=== PATIENT | female | born 1960 | race Caucasian/White ===

== ENCOUNTER 2023-01-02 15:08 | Outpatient (CLI) | payer BC | END 2023-01-02 15:09 | disposition home or self-care (01) | LOC: CSHCT 15:08 | PROVIDERS: ATTEND Internal Medicine Hematology & Oncology | DX: R91.1 Solitary pulmonary nodule (principal); C32.9 Malignant neoplasm of larynx, unspecified; F17.210 Nicotine dependence, cigarettes, uncomplicated; A15.0 Tuberculosis of lung | CPT/HCPCS: 71260; 82565 ==

== ENCOUNTER 2023-07-23 21:30 | Inpatient (IN) | payer BC, SELFPAY ==
[2023-07-23 22:32] LABS: #Monocytes 0.8 10x3/uL (0.0-1.1); #Neutrophils 7.2 10x3/uL (1.5-8.4); %Basophils 0.2 % (0.0-2.0); %Eosinophils 0.4 % (0.0-6.0); %Lymphocytes 9.6 % (18.0-47.0); %Monocytes 8.4 % (0.0-10.0); %Neutrophils 80.8 % (40.0-75.0); Hematocrit 37.3 % (34.9-44.5); Hemoglobin 12.2 g/dL (12.0-15.5); Mean Corpuscular HGB CONC 32.7 g/dL (32.0-36.0); Mean Corpuscular Hemoglobin 28.5 pg (27.0-33.0); Mean Corpuscular Volume 87.1 fl (81.6-98.3); Mean Platelet Volume 10.7 fl (7.4-10.4); Platelet Count 141 10x3/uL (150-450); RBC Distribution Width 15.5 % (11.5-14.5); Red Blood Cell (RBC) Count 4.28 10x6/uL (3.90-5.03)
[2023-07-23 22:51] LABS: ALT (SGPT) 34 U/L (8-55); AST (SGOT) 35 U/L (5-34); Albumin 3.1 g/dL (3.4-4.8); Alkaline Phosphatase 166 U/L (40-110); Anion Gap 18 mmol/L (10-20); BUN (Urea Nitrogen) 62 mg/dL (9.8-20.1); Bilirubin, Total 0.5 mg/dL (0.2-1.2); Calc. Creatinine Clearance 0 mL/min (70-130); Calcium 8.8 mg/dL (7.8-10.44); Carbon Dioxide 21 mmol/L (23-31); Chloride 95 mmol/L (98-107); Estimated GFR 42; Globulin 2.5 g/dL (2.4-3.5); Glucose 119 mg/dL (80-115); Potassium 5.5 mmol/L (3.5-5.1); Protein, Total 5.6 g/dL (5.8-8.1); Sodium 128 mmol/L (136-145); Troponin I Less than 0.010 ng/mL (< 0.028)
[2023-07-23 23:00] LABS: Bilirubin Neg (Negative); Blood, Urine 250 (Negative); Clarity Cloudy (Clear); Glucose, Urine (Dipstick) Normal (Negative); Ketone, Urine Negative (Negative); Leukocyte 500 (Negative); Nitrite Negative (Negative); Protein, Urine (Dipstick) 100 mg/dl (Neg-Trace); Specific Gravity, Urine 1.015 (1.005-1.030)
[2023-07-23 23:21] LABS: Bacteria/HPF 1+ HPF (None Seen); CAUTI Indications for Culture Dysuria,urgency,freq; Mucous/LPF Rare LPF (<2+); WBC/HPF Greater Than 50 HPF (0-3)
[2023-07-23 23:22] LABS: Urine Culture Reflex Yes Yes
[2023-07-23] MEDS ORDERED: cefTRIAXone (ROCEPHIN) 1 GM VIAL ONE (23:45)
[2023-07-24] MEDS ORDERED: Acetaminophen 325 MG TAB PO PRN (01:24)
[2023-07-24] MEDS ORDERED: Ondansetron ODT 4 MG TAB PO PRN (01:24)
[2023-07-24] MEDS ORDERED: Acetaminophen 650 MG Suppository PR PRN (01:24)
[2023-07-24] MEDS ORDERED: Ondansetron PF 4 MG/2 ML Vial IVP PRN (01:24)
[2023-07-24] MEDS ORDERED: Ipratropium/Albuterol 3 ML NEB NEB PRN (01:30)
[2023-07-24] MEDS ORDERED: Sodium Chloride 0.9% 1,000 ML IV SCH (02:15)
[2023-07-24] MEDS ORDERED: Doxycycline 100 MG in Sodium Chloride 0.9% 100 ML IVPB SCH (03:00)
[2023-07-24] MEDS: Ipratropium/Albuterol 3 ML NEB NEB SCH ×6 (03:00→23:40)
[2023-07-24 04:07] VITALS: BMI 23.1
[2023-07-24] MEDS ORDERED: FLU VACC QS2023-24(6MOS UP)/PF 60 MCG/0.5 ML SYRINGE IM ONE (05:00)
[2023-07-24 06:05] LABS: Magnesium 1.6 mg/dL (1.6-2.6)
[2023-07-24 06:06] LABS: Anion Gap 16 mmol/L (10-20); BUN (Urea Nitrogen) 55 mg/dL (9.8-20.1); Calc. Creatinine Clearance 44 mL/min (70-130); Calcium 8.3 mg/dL (7.8-10.44); Carbon Dioxide 22 mmol/L (23-31); Chloride 96 mmol/L (98-107); Estimated GFR 45; Glucose 91 mg/dL (80-115); Potassium 5.5 mmol/L (3.5-5.1); Sodium 128 mmol/L (136-145)
[2023-07-24 06:11] LABS: #Monocytes 0.7 10x3/uL (0.0-1.1); #Neutrophils 7.8 10x3/uL (1.5-8.4); %Basophils 0.3 % (0.0-2.0); %Eosinophils 0.3 % (0.0-6.0); %Lymphocytes 8.5 % (18.0-47.0); %Monocytes 7.3 % (0.0-10.0); %Neutrophils 82.7 % (40.0-75.0); Hematocrit 38.8 % (34.9-44.5); Hemoglobin 12.5 g/dL (12.0-15.5); Mean Corpuscular HGB CONC 32.2 g/dL (32.0-36.0); Mean Corpuscular Hemoglobin 28.4 pg (27.0-33.0); Mean Corpuscular Volume 88.2 fl (81.6-98.3); Platelet Count 128 10x3/uL (150-450); RBC Distribution Width 15.6 % (11.5-14.5); White Blood Cell (WBC) Count 9.5 10x3/uL (3.5-10.5)
[2023-07-24 11:43] LABS: Anion Gap 16 mmol/L (10-20); BUN (Urea Nitrogen) 55 mg/dL (9.8-20.1); Calc. Creatinine Clearance 47 mL/min (70-130); Calcium 8.4 mg/dL (7.8-10.44); Carbon Dioxide 21 mmol/L (23-31); Chloride 96 mmol/L (98-107); Estimated GFR 49; Glucose 79 mg/dL (80-115); Sodium 128 mmol/L (136-145)
[2023-07-24] MEDS: cefTRIAXone\\ROCEPHIN 1 GM in Sodium Chloride 0.9% 100 ML IVPB SCH (20:06)
[2023-07-25] MEDS: Ipratropium/Albuterol 3 ML NEB NEB SCH ×5 (03:00→20:35)
[2023-07-25] MEDS ORDERED: traZODone HCl 50 MG TAB PO PRN (07:19)
[2023-07-25] MEDS ORDERED: Levothyroxine Sodium 88 MCG TAB PO SCH (09:00)
[2023-07-25] MEDS: Apixaban 5 MG TAB PO SCH ×2 (09:24→21:02)
[2023-07-25] MEDS: ALPRAZolam 1 MG TAB PO SCH ×2 (09:24→20:15)
[2023-07-25] MEDS: Sertraline 100 MG TAB PO SCH (09:25)
[2023-07-25] MEDS: Atorvastatin Calcium 20 MG TAB PO SCH (21:02)
[2023-07-25] MEDS: cefTRIAXone\\ROCEPHIN 1 GM in Sodium Chloride 0.9% 100 ML IVPB SCH (21:02)
[2023-07-26] MEDS: Ipratropium/Albuterol 3 ML NEB NEB SCH ×7 (00:05→23:20)
[2023-07-26] MEDS: Levothyroxine Sodium 88 MCG TAB PO SCH (05:27)
[2023-07-26 08:41] LABS: Anion Gap 17 mmol/L (10-20); BUN (Urea Nitrogen) 29 mg/dL (9.8-20.1); Calc. Creatinine Clearance 65 mL/min (70-130); Calcium 8.5 mg/dL (7.8-10.44); Carbon Dioxide 17 mmol/L (23-31); Chloride 98 mmol/L (98-107); Estimated GFR 72; Glucose 72 mg/dL (80-115); Potassium 4.6 mmol/L (3.5-5.1); Sodium 127 mmol/L (136-145)
[2023-07-26] MEDS: Sertraline 100 MG TAB PO SCH (09:03)
[2023-07-26] MEDS: Apixaban 5 MG TAB PO SCH ×2 (09:03→20:58)
[2023-07-26] MEDS: ALPRAZolam 1 MG TAB PO SCH ×2 (09:03→21:08)
[2023-07-26] MEDS: cefTRIAXone\\ROCEPHIN 1 GM in Sodium Chloride 0.9% 100 ML IVPB SCH (20:57)
[2023-07-26] MEDS: Atorvastatin Calcium 20 MG TAB PO SCH (20:57)
[2023-07-26] MEDS: Isosorbide Mononitrate 20 MG TAB PO SCH (20:58)
[2023-07-27] MEDS: Ipratropium/Albuterol 3 ML NEB NEB SCH ×6 (03:00→23:05)
[2023-07-27] MEDS: Levothyroxine Sodium 88 MCG TAB PO SCH (06:00)
[2023-07-27 06:48] LABS: Anion Gap 16 mmol/L (10-20); BUN (Urea Nitrogen) 20 mg/dL (9.8-20.1); Calc. Creatinine Clearance 75 mL/min (70-130); Calcium 8.1 mg/dL (7.8-10.44); Carbon Dioxide 23 mmol/L (23-31); Chloride 92 mmol/L (98-107); Estimated GFR 85; Glucose 78 mg/dL (80-115); Potassium 3.7 mmol/L (3.5-5.1); Sodium 127 mmol/L (136-145)
[2023-07-27] MEDS: Apixaban 5 MG TAB PO SCH ×2 (08:50→20:19)
[2023-07-27] MEDS: Sodium Chloride 1 GM TAB PO SCH ×3 (08:51→20:19)
[2023-07-27] MEDS: Isosorbide Mononitrate 20 MG TAB PO SCH ×2 (08:51→20:19)
[2023-07-27] MEDS: Carvedilol 12.5 MG TAB PO SCH ×2 (08:59→20:18)
[2023-07-27] MEDS ORDERED: dilTIAZem 25 MG/5 ML VIAL SLOW IVP SCH (20:15)
[2023-07-27] MEDS: Atorvastatin Calcium 20 MG TAB PO SCH (20:19)
[2023-07-27] MEDS: cefTRIAXone\\ROCEPHIN 1 GM in Sodium Chloride 0.9% 100 ML IVPB SCH (20:22)
[2023-07-28] MEDS: Ipratropium/Albuterol 3 ML NEB NEB SCH ×6 (04:00→23:33)
[2023-07-28 06:21] LABS: Anion Gap 13 mmol/L (10-20); BUN (Urea Nitrogen) 15 mg/dL (9.8-20.1); Calc. Creatinine Clearance 82 mL/min (70-130); Calcium 7.8 mg/dL (7.8-10.44); Carbon Dioxide 24 mmol/L (23-31); Chloride 94 mmol/L (98-107); Estimated GFR 95; Glucose 84 mg/dL (80-115); Potassium 3.3 mmol/L (3.5-5.1); Sodium 128 mmol/L (136-145)
[2023-07-28] MEDS: Levothyroxine Sodium 88 MCG TAB PO SCH (06:53)
[2023-07-28] MEDS ORDERED: Potassium Chloride 20 MEQ TAB PO SCH ×2 (08:00→23:30)
[2023-07-28] MEDS: Sodium Chloride 1 GM TAB PO SCH ×3 (09:43→23:05)
[2023-07-28] MEDS: Carvedilol 12.5 MG TAB PO SCH ×2 (09:44→21:00)
[2023-07-28] MEDS: Apixaban 5 MG TAB PO SCH ×2 (09:44→21:02)
[2023-07-28] MEDS: Isosorbide Mononitrate 20 MG TAB PO SCH ×2 (09:44→23:03)
[2023-07-28] MEDS ORDERED: Cyclobenzaprine 10 MG TAB PO PRN (11:21)
[2023-07-28] MEDS ORDERED: Ventolin HFA Inhaler 60 PUFF INHALER INH PRN (11:21)
[2023-07-28] MEDS ORDERED: traZODone HCl 50 MG TAB PO PRN (11:22)
[2023-07-28] MEDS ORDERED: dilTIAZem 25 MG/5 ML VIAL SLOW IVP SCH ×2 (18:15→22:45)
[2023-07-28] MEDS: Atorvastatin Calcium 20 MG TAB PO SCH (21:02)
[2023-07-28] MEDS: Cholecalciferol 1,000 UNITS (25 MCG) TAB PO SCH (21:02)
[2023-07-28] MEDS: cefTRIAXone\\ROCEPHIN 1 GM in Sodium Chloride 0.9% 100 ML IVPB SCH (21:04)
[2023-07-28] MEDS ORDERED: Furosemide 20 MG/2 ML VIAL SLOW IVP SCH (23:30)
[2023-07-29] MEDS: Ipratropium/Albuterol 3 ML NEB NEB SCH ×5 (02:30→22:45)
[2023-07-29] MEDS: dilTIAZem 25 MG/5 ML VIAL SLOW IVP PRN ×2 (04:45→11:16)
[2023-07-29] MEDS: Levothyroxine Sodium 88 MCG TAB PO SCH (04:45)
[2023-07-29 05:25] LABS: Anion Gap 15 mmol/L (10-20); BUN (Urea Nitrogen) 15 mg/dL (9.8-20.1); Calc. Creatinine Clearance 79 mL/min (70-130); Calcium 7.9 mg/dL (7.8-10.44); Carbon Dioxide 22 mmol/L (23-31); Chloride 97 mmol/L (98-107); Estimated GFR 90; Glucose 79 mg/dL (80-115); Magnesium 1.2 mg/dL (1.6-2.6); Potassium 4.8 mmol/L (3.5-5.1); Sodium 129 mmol/L (136-145)
[2023-07-29] MEDS ORDERED: Magnesium Sulfate 4 GM in Sodium Chloride 0.9% 250 ML 250 ML IVPB SCH (07:45)
[2023-07-29] MEDS ORDERED: dilTIAZem CD 120 MG CAP PO SCH (09:00)
[2023-07-29] MEDS ORDERED: Furosemide 40 MG/4 ML VIAL SLOW IVP SCH (10:00)
[2023-07-29] MEDS: dilTIAZem CD 180 MG CAP PO SCH (11:10)
[2023-07-29] MEDS: Isosorbide Mononitrate 20 MG TAB PO SCH ×2 (11:20→21:21)
[2023-07-29] MEDS: Apixaban 5 MG TAB PO SCH ×2 (11:20→21:08)
[2023-07-29] MEDS: CO Q-10 CAPSULE 50 MG PO SCH (11:21)
[2023-07-29] MEDS: Estradiol 1 MG TAB PO SCH (11:21)
[2023-07-29] MEDS: Carvedilol 12.5 MG TAB PO SCH ×2 (11:21→21:09)
[2023-07-29] MEDS: Sodium Chloride 1 GM TAB PO SCH ×3 (11:21→21:08)
[2023-07-29 12:57] LABS: Magnesium 1.2 mg/dL (1.6-2.6)
[2023-07-29] MEDS: Magnesium 2 GM/50 ML(in water) 2 GM in Premix 1 BAG IVPB SCH ×4 (16:41→16:48)
[2023-07-29] MEDS: Atorvastatin Calcium 20 MG TAB PO SCH (21:08)
[2023-07-29] MEDS: Cholecalciferol 1,000 UNITS (25 MCG) TAB PO SCH (21:14)
[2023-07-30] MEDS: Ipratropium/Albuterol 3 ML NEB NEB SCH ×6 (02:30→18:45)
[2023-07-30 05:02] LABS: Magnesium 1.6 mg/dL (1.6-2.6)
[2023-07-30] MEDS: Levothyroxine Sodium 88 MCG TAB PO SCH (06:01)
[2023-07-30] MEDS ORDERED: Magnesium 2 GM/50 ML(in water) 2 GM in Premix 1 BAG IVPB SCH (09:00)
[2023-07-30] MEDS: Carvedilol 12.5 MG TAB PO SCH ×2 (09:20→20:40)
[2023-07-30] MEDS: CO Q-10 CAPSULE 50 MG PO SCH (09:20)
[2023-07-30] MEDS: Apixaban 5 MG TAB PO SCH ×2 (09:20→20:40)
[2023-07-30] MEDS: dilTIAZem CD 180 MG CAP PO SCH (09:20)
[2023-07-30] MEDS: Estradiol 1 MG TAB PO SCH (09:21)
[2023-07-30] MEDS: Sodium Chloride 1 GM TAB PO SCH ×3 (09:21→20:40)
[2023-07-30] MEDS: Isosorbide Mononitrate 20 MG TAB PO SCH ×2 (09:21→20:41)
[2023-07-30] MEDS ORDERED: Furosemide 40 MG/4 ML VIAL ONE (15:10)
[2023-07-30] MEDS ORDERED: Ipratropium/Albuterol 3 ML NEB NEB SCH (15:15)
[2023-07-30] MEDS ORDERED: Furosemide 40 MG/4 ML VIAL SLOW IVP SCH ×2 (15:15→21:00)
[2023-07-30 15:33] LABS: ALV-art Gradient 97.535 mmHg (0-20); Actual Bicarbonate (HCO3a) 31.1 mEq/L (22-28); Base Excess (BEa) 4.6 mEq/L (-2.0 to +3.0); CO2 Tension 54.1 mmHg (35.0-45.0); Carboxyhemoglobin (COHb) 0.3 gm% (0.0-3.0); Hematocrit-ABG 38 % (36.0-47.0); Hemoglobin (Hb) 12.9 g/dL (12.0-16.0); Potassium - ABG Lab 3.28 mmol/L (3.70-5.30); Puncture Site LRA; pH, Arterial 7.377 (7.35-7.45)
[2023-07-30 16:06] LABS: Anion Gap 13 mmol/L (10-20); BUN (Urea Nitrogen) 15 mg/dL (9.8-20.1); Calc. Creatinine Clearance 78 mL/min (70-130); Calcium 7.8 mg/dL (7.8-10.44); Carbon Dioxide 25 mmol/L (23-31); Chloride 94 mmol/L (98-107); Estimated GFR 89; Glucose 121 mg/dL (80-115); Potassium 3.7 mmol/L (3.5-5.1); Sodium 128 mmol/L (136-145)
[2023-07-30] MEDS: Cholecalciferol 1,000 UNITS (25 MCG) TAB PO SCH (20:40)
[2023-07-30] MEDS: Atorvastatin Calcium 20 MG TAB PO SCH (20:40)
[2023-07-31] MEDS: Ipratropium/Albuterol 3 ML NEB NEB SCH ×6 (01:05→22:40)
[2023-07-31 04:06] LABS: Anion Gap 14 mmol/L (10-20); BUN (Urea Nitrogen) 13 mg/dL (9.8-20.1); Calc. Creatinine Clearance 83 mL/min (70-130); Calcium 7.8 mg/dL (7.8-10.44); Carbon Dioxide 29 mmol/L (23-31); Chloride 90 mmol/L (98-107); Estimated GFR 97; Glucose 89 mg/dL (80-115); Magnesium 1.5 mg/dL (1.6-2.6); Sodium 131 mmol/L (136-145)
[2023-07-31 04:11] LABS: Potassium 2.4 mmol/L (3.5-5.1)
[2023-07-31] MEDS ORDERED: Potassium Chloride 20 MEQ TAB PO SCH ×2 (04:30→07:45)
[2023-07-31] MEDS: Levothyroxine Sodium 88 MCG TAB PO SCH (05:14)
[2023-07-31] MEDS ORDERED: Potassium Chloride 20 MEQ in Premix 2 BAG IVPB SCH (07:45)
[2023-07-31] MEDS: Apixaban 5 MG TAB PO SCH ×2 (08:39→20:52)
[2023-07-31] MEDS: Sodium Chloride 1 GM TAB PO SCH ×3 (08:39→20:52)
[2023-07-31] MEDS: dilTIAZem CD 180 MG CAP PO SCH ×3 (08:39→12:39)
[2023-07-31] MEDS: CO Q-10 CAPSULE 50 MG PO SCH (08:39)
[2023-07-31] MEDS: Magnesium 2 GM/50 ML(in water) 2 GM in Premix 1 BAG IVPB SCH ×2 (08:42→10:07)
[2023-07-31] MEDS: Potassium Chloride 20 MEQ in Premix 1 BAG IVPB SCH ×2 (08:43→11:42)
[2023-07-31] MEDS: Carvedilol 12.5 MG TAB PO SCH ×3 (08:52→23:11)
[2023-07-31] MEDS: Furosemide 40 MG/4 ML VIAL SLOW IVP SCH ×2 (08:52→20:46)
[2023-07-31] MEDS: Estradiol 1 MG TAB PO SCH (08:55)
[2023-07-31] MEDS: Isosorbide Mononitrate 20 MG TAB PO SCH ×3 (08:56→23:11)
[2023-07-31] MEDS: Atorvastatin Calcium 20 MG TAB PO SCH (20:52)
[2023-07-31] MEDS: Cholecalciferol 1,000 UNITS (25 MCG) TAB PO SCH (20:52)
[2023-08-01] MEDS: Ipratropium/Albuterol 3 ML NEB NEB SCH ×5 (00:43→15:51)
[2023-08-01 03:46] LABS: Anion Gap 13 mmol/L (10-20); BUN (Urea Nitrogen) 12 mg/dL (9.8-20.1); Calc. Creatinine Clearance 82 mL/min (70-130); Calcium 7.8 mg/dL (7.8-10.44); Carbon Dioxide 29 mmol/L (23-31); Chloride 91 mmol/L (98-107); Estimated GFR 95; Glucose 95 mg/dL (80-115); Potassium 3.1 mmol/L (3.5-5.1); Sodium 130 mmol/L (136-145)
[2023-08-01 04:01] LABS: #Monocytes 0.6 10x3/uL (0.0-1.1); #Neutrophils 9.6 10x3/uL (1.5-8.4); %Basophils 0.2 % (0.0-2.0); %Eosinophils 0.2 % (0.0-6.0); %Lymphocytes 6.4 % (18.0-47.0); %Monocytes 5.5 % (0.0-10.0); %Neutrophils 87.2 % (40.0-75.0); Hematocrit 35.1 % (34.9-44.5); Hemoglobin 11.6 g/dL (12.0-15.5); Mean Corpuscular Hemoglobin 27.7 pg (27.0-33.0); Mean Corpuscular Volume 83.8 fl (81.6-98.3); Mean Platelet Volume 9.4 fl (7.4-10.4); Platelet Count 121 10x3/uL (150-450); RBC Distribution Width 15.7 % (11.5-14.5); Red Blood Cell (RBC) Count 4.19 10x6/uL (3.90-5.03)
[2023-08-01] MEDS ORDERED: Potassium Chloride 20 MEQ TAB PO SCH (04:30)
[2023-08-01] MEDS: Levothyroxine Sodium 88 MCG TAB PO SCH (05:02)
[2023-08-01] MEDS ORDERED: guaiFENesin ER 600 MG TAB PO SCH (09:00)
[2023-08-01] MEDS: Apixaban 5 MG TAB PO SCH (10:01)
[2023-08-01] MEDS: Sodium Chloride 1 GM TAB PO SCH ×2 (10:01→16:25)
[2023-08-01] MEDS: Estradiol 1 MG TAB PO SCH (10:01)
[2023-08-01] MEDS: CO Q-10 CAPSULE 50 MG PO SCH (10:01)
[2023-08-01] MEDS: dilTIAZem CD 180 MG CAP PO SCH (10:02)
[2023-08-01] MEDS: Carvedilol 12.5 MG TAB PO SCH (10:02)
[2023-08-01] MEDS: Furosemide 40 MG/4 ML VIAL SLOW IVP SCH (10:02)
[2023-08-01] MEDS: Isosorbide Mononitrate 20 MG TAB PO SCH (13:22)
[2023-08-01 17:47] VITALS: BP 110/59; TEMP 99.1
[2023-08-01] MEDS ORDERED: Isosorbide Mononitrate 20 MG TAB PO SCH (21:00)
== END 2023-08-01 19:00 | DRG 689 ==
LOC: CSHERS 21:30 → CSHTELE 07-24 00:08
PROVIDERS: ADMIT Student in an Organized Health Care Education/Training Program; ATTEND Family Medicine
PROC: 4A033R1 Measurement of Arterial Saturation, Peripheral, Percutaneous Approach (ICD-10-PCS; principal; 2023-07-30)
DX: N39.0 Urinary tract infection, site not specified (principal); I50.33 Acute on chronic diastolic (congestive) heart failure; J18.9 Pneumonia, unspecified organism; N17.9 Acute kidney failure, unspecified; E87.1 Hypo-osmolality and hyponatremia; I25.10 Atherosclerotic heart disease of native coronary artery without angina pectoris; E03.9 Hypothyroidism, unspecified; F17.210 Nicotine dependence, cigarettes, uncomplicated; E86.0 Dehydration; I48.91 Unspecified atrial fibrillation; I11.0 Hypertensive heart disease with heart failure; E87.5 Hyperkalemia; B96.20 Unspecified Escherichia coli [E. coli] as the cause of diseases classified elsewhere; R32 Unspecified urinary incontinence; Z79.01 Long term (current) use of anticoagulants; Z98.890 Other specified postprocedural states; Z95.810 Presence of automatic (implantable) cardiac defibrillator; I25.2 Old myocardial infarction; Z95.5 Presence of coronary angioplasty implant and graft; Z90.710 Acquired absence of both cervix and uterus; Z88.8 Allergy status to other drugs, medicaments and biological substances; Z88.5 Allergy status to narcotic agent; Z79.899 Other long term (current) drug therapy; Z79.51 Long term (current) use of inhaled steroids; E87.6 Hypokalemia
CPT/HCPCS: 36415; 36416; 36600; 71045; 80048; 80053; 81001; 82805; 83735; 83880; 84145; 84443; 84484; 85025; 87040; 87077; 87086; 87186; 93005; 93010; 93306; 94640; 94760; 94762; J0696; J1940; J3475; J3480; J3490; J7050; J7620

== ENCOUNTER 2023-08-20 10:15 | Emergency (ER) | payer BC | END 2023-08-20 12:33 | disposition home or self-care (01) | LOC: CSHERS 10:15 | DX: S80.212A Abrasion, left knee, initial encounter (principal); I25.10 Atherosclerotic heart disease of native coronary artery without angina pectoris; E78.5 Hyperlipidemia, unspecified; E03.9 Hypothyroidism, unspecified; I10 Essential (primary) hypertension; F17.210 Nicotine dependence, cigarettes, uncomplicated; Z79.899 Other long term (current) drug therapy; W18.39XA Other fall on same level, initial encounter | CPT/HCPCS: 70450 ==

== ENCOUNTER 2023-09-11 10:32 | Outpatient (CLI) | payer BC ==
[2023-09-11 12:40] LABS: Hemoglobin 11.3 g/dL (12.0-15.5); Mean Corpuscular HGB CONC 31.4 g/dL (32.0-36.0); Mean Corpuscular Hemoglobin 27.1 pg (27.0-33.0); Mean Corpuscular Volume 86.3 fl (81.6-98.3); Mean Platelet Volume 10.3 fl (7.4-10.4); Platelet Count 144 10x3/uL (150-450); RBC Distribution Width 18.9 % (11.5-14.5); Red Blood Cell (RBC) Count 4.17 10x6/uL (3.90-5.03)
[2023-09-11 12:55] LABS: INR-International Normal Ratio 1.5; Prothrombin Time 16.1 sec (9.5-12.1)
[2023-09-11 13:57] LABS: ALT (SGPT) 28 U/L (8-55); AST (SGOT) 26 U/L (5-34); Albumin 3.1 g/dL (3.4-4.8); Alkaline Phosphatase 124 U/L (40-110); Anion Gap 16 mmol/L (10-20); BUN (Urea Nitrogen) 29 mg/dL (9.8-20.1); Bilirubin, Total 0.9 mg/dL (0.2-1.2); Calc. Creatinine Clearance 0 mL/min (70-130); Calcium 8.3 mg/dL (7.8-10.44); Carbon Dioxide 23 mmol/L (23-31); Chloride 95 mmol/L (98-107); Estimated GFR 60; Globulin 2.5 g/dL (2.4-3.5); Glucose 71 mg/dL (80-115); Magnesium 1.3 mg/dL (1.6-2.6); Potassium 3.7 mmol/L (3.5-5.1); Protein, Total 5.6 g/dL (5.8-8.1); Sodium 130 mmol/L (136-145)
== END 2023-09-11 10:33 | disposition home or self-care (01) ==
LOC: CSHLAB 10:32
PROVIDERS: ATTEND Specialist
DX: Z01.818 Encounter for other preprocedural examination (principal); I48.91 Unspecified atrial fibrillation
CPT/HCPCS: 80053; 83735; 85027; 85610; 93005; 93010

== ENCOUNTER 2023-09-12 09:04 | Day surgery (SDC) | payer BC ==
[2023-09-12] MEDS ORDERED: PROPOFOL 20 ML ONE (10:13)
[2023-09-12] MEDS ORDERED: Magnesium 2 GM/50 ML(in water) 2 GM in Premix 1 BAG IVPB SCH (10:15)
[2023-09-12] MEDS ORDERED: Lidocaine 1% PF 5 ML VIAL ONE (10:35)
[2023-09-12 11:31] VITALS: BP 142/76; TEMP 97.1
[2023-09-12] MEDS ORDERED: Potassium Chloride 20 MEQ TAB ONE (11:33)
[2023-09-12] MEDS ORDERED: FLU VACC QS2023-24(6MOS UP)/PF 60 MCG/0.5 ML SYRINGE IM ONE (12:00)
[2023-09-12] MEDS ORDERED: Potassium Chloride 20 MEQ TAB PO SCH (12:30)
== END 2023-09-12 11:55 | disposition home or self-care (01) ==
LOC: CSHSDC 09:04
PROVIDERS: ATTEND Specialist
PROC: 5A2204Z Restoration of Cardiac Rhythm, Single (ICD-10-PCS; principal; 2023-09-12)
DX: I48.19 Other persistent atrial fibrillation (principal); I11.0 Hypertensive heart disease with heart failure; I50.42 Chronic combined systolic (congestive) and diastolic (congestive) heart failure; I25.118 Atherosclerotic heart disease of native coronary artery with other forms of angina pectoris; I25.2 Old myocardial infarction; E78.2 Mixed hyperlipidemia; I47.20 Ventricular tachycardia, unspecified; I35.1 Nonrheumatic aortic (valve) insufficiency; E03.9 Hypothyroidism, unspecified; R73.03 Prediabetes; E87.6 Hypokalemia; F17.210 Nicotine dependence, cigarettes, uncomplicated; Z95.5 Presence of coronary angioplasty implant and graft; Z90.710 Acquired absence of both cervix and uterus; Z98.890 Other specified postprocedural states; Z88.5 Allergy status to narcotic agent; Z88.8 Allergy status to other drugs, medicaments and biological substances; Z79.82 Long term (current) use of aspirin; Z79.899 Other long term (current) drug therapy; Z79.01 Long term (current) use of anticoagulants; Z79.890 Hormone replacement therapy; Z95.810 Presence of automatic (implantable) cardiac defibrillator
CPT/HCPCS: 92960; 93005; 93010; J2704; J3475